=== PATIENT | male | born 1930 | race Caucasian/White ===

== ENCOUNTER 2016-12-28 14:15 | Inpatient (IN) | payer MEDICARE, BC ==
[~2016-12-28] VITALS: Ht 167.6 cm; Wt 68.8 kg
[2016-12-28] VITALS (8 sets, daily range): BP systolic 125–180; BP diastolic 65–95; PULSE 65–82; TEMP 97.1–98
[2016-12-28 19:18] LABS: BASO % 0.2 % (0.0-2.0); EOS % 0.2 % (0-4.0); GRAN # 9.2 (1.4-6.5); GRAN % 76.5 % (42.2-75.2); HEMATOCRIT 47.5 % (42.0-52.0); HEMOGLOBIN 15.3 g/dl (13.5-18.0); LYMPH % 16.8 % (20.0-51.0); MEAN CELL VOLUME 92 fl (80.0-100.0); MEAN CORPUSCULAR HEMOGLOBIN 30 pg (27.0-31.0); MEAN CORPUSCULAR HGB CONC 32 g/dl (33.0-37.0); MEAN PLATELET VOLUME 11.1 fl (7.4-10.4); MONO # 0.7 (0.1-0.6); MONO % 5.4 % (1.7-9.3); PLATELET COUNT 181 K/mm3 (130-400); RED BLOOD COUNT 5.19 M/mm3 (4.20-5.60); WHITE BLOOD COUNT 12.1 K/mm3 (4.8-10.8)
[2016-12-28 19:33] LABS: ADJUSTED CALCIUM 8.8 mg/dL (8.4-10.2); ALBUMIN 3.5 gm/dL (3.5-5.0); BILIRUBIN,TOTAL 1.2 mg/dL (0.0-1.0); CALCIUM 8.4 mg/dL (8.4-10.2); CREATININE, serum 0.82 mg/dL (0.66-1.25); MAGNESIUM 2.2 mg/dL (1.6-2.3); POTASSIUM 3.2 mmol/L (3.4-5.0); TOTAL PROTEIN 6.6 gm/dL (6.4-8.2)
[2016-12-28 20:06] LABS: PH 6 (5-8); SQUAMOUS EPITHELIAL None Seen /hpf; URINE APPEARANCE Clear; URINE BACTERIA None Seen /hpf; URINE BILIRUBIN Negative (NEGATIVE); URINE BLOOD 1+ (NEGATIVE); URINE COLOR Yellow; URINE GLUCOSE Negative (NEGATIVE); URINE KETONE 1+ (NEGATIVE); URINE LEUKOCYTE ESTERASE Negative (NEGATIVE); URINE PROTEIN(semi-quant) Negative (NEGATIVE); URINE RBC 0-2 /hpf; URINE UROBILINOGEN Negative (NEGATIVE)
[2016-12-28 20:19] LABS: COLLECTION METHOD CLEAN CATCH
[2016-12-29] VITALS (8 sets, daily range): BP systolic 89–179; BP diastolic 51–100; PULSE 58–95; TEMP 97.5–97.8
[2016-12-29 07:16] LABS: BASO % 0.3 % (0.0-2.0); EOS % 0.1 % (0-4.0); GRAN # 7.8 (1.4-6.5); GRAN % 77.6 % (42.2-75.2); HEMATOCRIT 48.9 % (42.0-52.0); HEMOGLOBIN 15.8 g/dl (13.5-18.0); LYMPH # 1.6 (1.2-3.4); LYMPH % 15.5 % (20.0-51.0); MEAN CELL VOLUME 92 fl (80.0-100.0); MEAN CORPUSCULAR HEMOGLOBIN 30 pg (27.0-31.0); MEAN CORPUSCULAR HGB CONC 32 g/dl (33.0-37.0); MEAN PLATELET VOLUME 11.8 fl (7.4-10.4); MONO # 0.6 (0.1-0.6); PLATELET COUNT 161 K/mm3 (130-400); RED BLOOD COUNT 5.34 M/mm3 (4.20-5.60); WHITE BLOOD COUNT 10.1 K/mm3 (4.8-10.8)
[2016-12-29 08:19] LABS: CALCIUM 8.3 mg/dL (8.4-10.2); CREATININE, serum 0.77 mg/dL (0.66-1.25); POTASSIUM 3.8 mmol/L (3.4-5.0)
[2016-12-30 04:22] VITALS: BP 142/82; PULSE 79; TEMP 97.4
[2016-12-30 07:02] VITALS: BP 155/75; PULSE 72; TEMP 97
[2016-12-30 11:17] VITALS: BP 144/74; PULSE 52; TEMP 97.8
[2016-12-30 15:29] VITALS: BP 102/61; PULSE 86; TEMP 98.3
[2016-12-30 19:54] VITALS: BP 155/86; PULSE 85; TEMP 97.1
[2016-12-30 23:07] VITALS: BP 155/89; PULSE 69; TEMP 97.5
[2016-12-31 02:55] VITALS: BP 167/85; PULSE 74
[2016-12-31 06:58] LABS: BASO % 0.5 % (0.0-2.0); EOS # 0.1 (0.0-0.7); EOS % 0.9 % (0-4.0); GRAN # 5.1 (1.4-6.5); GRAN % 66.3 % (42.2-75.2); HEMATOCRIT 40.1 % (42.0-52.0); LYMPH # 1.9 (1.2-3.4); LYMPH % 23.8 % (20.0-51.0); MEAN CELL VOLUME 91 fl (80.0-100.0); MEAN CORPUSCULAR HEMOGLOBIN 29 pg (27.0-31.0); MEAN CORPUSCULAR HGB CONC 32 g/dl (33.0-37.0); MEAN PLATELET VOLUME 11.2 fl (7.4-10.4); MONO # 0.6 (0.1-0.6); PLATELET COUNT 155 K/mm3 (130-400); RED BLOOD COUNT 4.43 M/mm3 (4.20-5.60); WHITE BLOOD COUNT 7.8 K/mm3 (4.8-10.8)
[2016-12-31 07:09] LABS: HEMOGLOBIN 12.9 g/dl (13.5-18.0)
[2016-12-31 07:13] LABS: CALCIUM 8.2 mg/dL (8.4-10.2); CREATININE, serum 0.67 mg/dL (0.66-1.25); MAGNESIUM 1.7 mg/dL (1.6-2.3); POTASSIUM 4.2 mmol/L (3.4-5.0)
[2016-12-31 08:27] VITALS: BP 153/83; PULSE 54; TEMP 97.5
[2016-12-31 11:56] VITALS: BP 115/79; PULSE 82; TEMP 97.3
[2016-12-31 14:07] LABS: HEMATOCRIT 42.4 % (42.0-52.0)
[2016-12-31 15:57] VITALS: PULSE 62; TEMP 97.5
[2016-12-31 16:23] VITALS: BP 117/70
[2016-12-31 19:52] VITALS: BP 98/54; PULSE 50; TEMP 99.1
[2017-01-01] VITALS (895 sets, daily range): BP systolic 109–163; BP diastolic 74–104; PULSE 53–131; TEMP 96.9–98.2; O2SAT 58–100
[2017-01-01 03:38] LABS: BASO % 0.4 % (0.0-2.0); EOS # 0.1 (0.0-0.7); EOS % 1.4 % (0-4.0); GRAN % 56.2 % (42.2-75.2); HEMATOCRIT 38.9 % (42.0-52.0); HEMOGLOBIN 12.6 g/dl (13.5-18.0); LYMPH # 2.3 (1.2-3.4); LYMPH % 32.9 % (20.0-51.0); MEAN CELL VOLUME 91 fl (80.0-100.0); MEAN CORPUSCULAR HEMOGLOBIN 29 pg (27.0-31.0); MEAN CORPUSCULAR HGB CONC 32 g/dl (33.0-37.0); MEAN PLATELET VOLUME 11.1 fl (7.4-10.4); MONO # 0.6 (0.1-0.6); MONO % 8.7 % (1.7-9.3); PLATELET COUNT 138 K/mm3 (130-400); RED BLOOD COUNT 4.28 M/mm3 (4.20-5.60); WHITE BLOOD COUNT 7.1 K/mm3 (4.8-10.8)
[2017-01-01 03:48] LABS: ANION GAP 3 mmol/L (7-16); BLOOD UREA NITROGEN 18 mg/dL (9-20); CALCIUM 7.9 mg/dL (8.4-10.2); CARBON DIOXIDE 23 mmol/L (22-30); CHLORIDE 109 mmol/L (98-107); CREATININE, serum 0.76 mg/dL (0.66-1.25); GLUCOSE 89 mg/dL (74-106); MAGNESIUM 1.6 mg/dL (1.6-2.3); PHOSPHOROUS 3.3 mg/dL (2.5-4.5); POTASSIUM 3.5 mmol/L (3.4-5.0); SODIUM 135 mmol/L (137-145)
[2017-01-01 04:01] LABS: TROPONIN-I < 0.012 ng/mL (0.000-0.034)
[2017-01-01 07:35] LABS: BASO % 0.5 % (0.0-2.0); EOS # 0.1 (0.0-0.7); GRAN # 4.7 (1.4-6.5); GRAN % 57.6 % (42.2-75.2); HEMATOCRIT 40.2 % (42.0-52.0); HEMOGLOBIN 13.1 g/dl (13.5-18.0); LYMPH # 2.6 (1.2-3.4); LYMPH % 31.7 % (20.0-51.0); MEAN CELL VOLUME 91 fl (80.0-100.0); MEAN CORPUSCULAR HEMOGLOBIN 30 pg (27.0-31.0); MEAN CORPUSCULAR HGB CONC 33 g/dl (33.0-37.0); MEAN PLATELET VOLUME 11.4 fl (7.4-10.4); MONO # 0.7 (0.1-0.6); MONO % 8.8 % (1.7-9.3); PLATELET COUNT 147 K/mm3 (130-400); RED BLOOD COUNT 4.41 M/mm3 (4.20-5.60); WHITE BLOOD COUNT 8.2 K/mm3 (4.8-10.8)
[2017-01-01 07:41] LABS: CALCIUM 8.1 mg/dL (8.4-10.2); CREATININE, serum 0.75 mg/dL (0.66-1.25); MAGNESIUM 1.9 mg/dL (1.6-2.3); POTASSIUM 3.9 mmol/L (3.4-5.0)
[2017-01-02] VITALS (731 sets, daily range): BP systolic 107–171; BP diastolic 57–109; PULSE 64–102; TEMP 97–98.8; O2SAT 69–100
[2017-01-02 05:51] LABS: ADD PATHOLOGY DIFF REVIEW NO
[2017-01-02 05:57] LABS: HEMATOCRIT 43.9 % (42.0-52.0); HEMOGLOBIN 14.2 g/dl (13.5-18.0); MEAN CELL VOLUME 91 fl (80.0-100.0); MEAN CORPUSCULAR HEMOGLOBIN 30 pg (27.0-31.0); MEAN CORPUSCULAR HGB CONC 32 g/dl (33.0-37.0); MEAN PLATELET VOLUME 11.1 fl (7.4-10.4); PLATELET COUNT 154 K/mm3 (130-400); RED BLOOD COUNT 4.82 M/mm3 (4.20-5.60); WHITE BLOOD COUNT 7.4 K/mm3 (4.8-10.8)
[2017-01-02 06:08] LABS: CALCIUM 8.4 mg/dL (8.4-10.2); CREATININE, serum 0.73 mg/dL (0.66-1.25); MAGNESIUM 1.9 mg/dL (1.6-2.3)
[2017-01-02 06:32] LABS: BAND 2 % (0-10); EOSINOPHIL 3 % (0-4); LYMPHOCYTE 36 % (20.0-51.0); NEUTROPHILS 51 % (42.0-75.2); PLATELET ESTIMATE NORMAL (NORMAL); TOTAL CELLS COUNTED 100
[2017-01-02 06:36] LABS: TSH w REFLEX 2.75 uIU/mL (0.465-4.680)
[2017-01-03 04:23] VITALS: BP 133/75; PULSE 68; TEMP 98.1
[2017-01-03] MEDS ORDERED: PACERONE400 MG PO (07:37)
[2017-01-03] MEDS ORDERED: NORVASC2.5 MG PO (07:38)
[2017-01-03 08:17] VITALS: BP 151/83; PULSE 70; TEMP 97
[2017-01-03 10:27] VITALS: BP 151/83; PULSE 70; TEMP 97
== END 2017-01-03 12:45 | DRG 391 ==
LOC: MEDICAL 14:15 → SDCO 16:00 → EDSTATUS 16:00 → MEDICAL 16:54 → ICU 01-01 04:40 → MEDICAL 01-02 15:15
PROVIDERS: Internal Medicine; Internal Medicine Gastroenterology; Nurse Practitioner Family; Physician Assistant
PROC: 0DJD8ZZ Inspection of Lower Intestinal Tract, Via Natural or Artificial Opening Endoscopic (ICD-10-PCS; principal; 2016-12-28 16:00)
DX: K59.8 Other specified functional intestinal disorders (principal); E43 Unspecified severe protein-calorie malnutrition; N39.0 Urinary tract infection, site not specified; I48.92 Unspecified atrial flutter; I10 Essential (primary) hypertension; E87.6 Hypokalemia; I48.0 Paroxysmal atrial fibrillation; B96.20 Unspecified Escherichia coli [E. coli] as the cause of diseases classified elsewhere
CPT/HCPCS: OP; 99223-AI; 99232-AI; 99233-AI; 99239; C9113; J0282; J0360; J0696; J1650; J2704; J3475; J3480; J7030; J7060

== ENCOUNTER 2017-01-07 19:10 | Inpatient (IN) | payer MEDICARE, BC ==
[~2017-01-07] VITALS: Ht 167.6 cm; Wt 63.6 kg
[~2017-01-07 19:10] MED LIST: NORVASC2.5 MG PO; PACERONE400 MG PO
[2017-01-07 21:06] VITALS: BP 136/83; PULSE 94; TEMP 98.5
[2017-01-07 22:26] LABS: BASO % 0.3 % (0.0-2.0); EOS # 0.1 (0.0-0.7); EOS % 0.5 % (0-4.0); GRAN # 6.5 (1.4-6.5); GRAN % 66.8 % (42.2-75.2); HEMATOCRIT 42.9 % (42.0-52.0); HEMOGLOBIN 13.7 g/dl (13.5-18.0); LYMPH # 2.4 (1.2-3.4); LYMPH % 24.8 % (20.0-51.0); MEAN CELL VOLUME 92 fl (80.0-100.0); MEAN CORPUSCULAR HEMOGLOBIN 29 pg (27.0-31.0); MEAN CORPUSCULAR HGB CONC 32 g/dl (33.0-37.0); MONO # 0.7 (0.1-0.6); MONO % 7.1 % (1.7-9.3); PLATELET COUNT 227 K/mm3 (130-400); RED BLOOD COUNT 4.66 M/mm3 (4.20-5.60); WHITE BLOOD COUNT 9.8 K/mm3 (4.8-10.8)
[2017-01-07 22:35] LABS: ADJUSTED CALCIUM 9.3 mg/dL (8.4-10.2); ALBUMIN 3.8 gm/dL (3.5-5.0); BILIRUBIN,TOTAL 0.7 mg/dL (0.0-1.0); CALCIUM 9.1 mg/dL (8.4-10.2); CREATININE, serum 1.26 mg/dL (0.66-1.25); POTASSIUM 3.4 mmol/L (3.4-5.0); TOTAL PROTEIN 7.3 gm/dL (6.4-8.2)
[2017-01-08 00:30] VITALS: BP 122/72; PULSE 57; TEMP 98.5
[2017-01-08 05:09] VITALS: BP 134/61; PULSE 60; TEMP 98.3
[2017-01-08 07:52] VITALS: BP 125/75; PULSE 64; TEMP 97.8
[2017-01-08 11:05] VITALS: BP 99/61; PULSE 67; TEMP 97.8
[2017-01-08 12:53] LABS: PH 7 (5-8); SQUAMOUS EPITHELIAL None Seen /hpf; URINE APPEARANCE Clear; URINE BACTERIA None Seen /hpf; URINE BILIRUBIN Negative (NEGATIVE); URINE BLOOD Negative (NEGATIVE); URINE COLOR Straw; URINE GLUCOSE Negative (NEGATIVE); URINE KETONE Negative (NEGATIVE); URINE LEUKOCYTE ESTERASE Negative (NEGATIVE); URINE PROTEIN(semi-quant) Negative (NEGATIVE); URINE RBC 0-2 /hpf; URINE UROBILINOGEN Negative (NEGATIVE); URINE WBC 0-2 /hpf
[2017-01-08 13:02] LABS: COLLECTION METHOD CLEAN CATCH
[2017-01-08 15:19] VITALS: BP 109/58; PULSE 68; TEMP 97.6
[2017-01-08 19:20] VITALS: BP 106/60; PULSE 68; TEMP 98.5
[2017-01-09] VITALS (7 sets, daily range): BP systolic 115–158; BP diastolic 60–87; PULSE 59–71; TEMP 97.5–98.6
[2017-01-10 03:04] VITALS: BP 174/74; PULSE 69; TEMP 97.8
[2017-01-10 06:10] LABS: CALCIUM 8.1 mg/dL (8.4-10.2); CREATININE, serum 0.8 mg/dL (0.66-1.25); MAGNESIUM 1.7 mg/dL (1.6-2.3)
[2017-01-10 06:14] LABS: POTASSIUM 2.8 mmol/L (3.4-5.0)
[2017-01-10 07:46] VITALS: BP 131/80; PULSE 61; TEMP 98.1
[2017-01-10 08:29] LABS: BASO % 0.5 % (0.0-2.0); EOS # 0.1 (0.0-0.7); EOS % 0.7 % (0-4.0); GRAN # 5.3 (1.4-6.5); GRAN % 66.3 % (42.2-75.2); HEMATOCRIT 37.9 % (42.0-52.0); HEMOGLOBIN 12.1 g/dl (13.5-18.0); LYMPH % 24.7 % (20.0-51.0); MEAN CELL VOLUME 92 fl (80.0-100.0); MEAN CORPUSCULAR HEMOGLOBIN 29 pg (27.0-31.0); MEAN CORPUSCULAR HGB CONC 32 g/dl (33.0-37.0); MEAN PLATELET VOLUME 10.3 fl (7.4-10.4); MONO # 0.6 (0.1-0.6); MONO % 7.6 % (1.7-9.3); PLATELET COUNT 218 K/mm3 (130-400); RED BLOOD COUNT 4.11 M/mm3 (4.20-5.60)
[2017-01-10 11:27] VITALS: BP 130/66; PULSE 66; TEMP 98.1
[2017-01-10 15:25] VITALS: BP 121/63; PULSE 72; TEMP 97.9
[2017-01-10 19:49] VITALS: BP 144/80; PULSE 66; TEMP 97.9
[2017-01-11] VITALS (7 sets, daily range): BP systolic 129–152; BP diastolic 77–96; PULSE 63–83; TEMP 97.7–99.1
[2017-01-11 07:04] LABS: BASO % 0.4 % (0.0-2.0); EOS # 0.1 (0.0-0.7); EOS % 1.2 % (0-4.0); GRAN % 58.4 % (42.2-75.2); LYMPH # 2.2 (1.2-3.4); LYMPH % 31.7 % (20.0-51.0); MEAN CELL VOLUME 93 fl (80.0-100.0); MEAN CORPUSCULAR HGB CONC 32 g/dl (33.0-37.0); MEAN PLATELET VOLUME 10.3 fl (7.4-10.4); MONO # 0.5 (0.1-0.6); MONO % 7.9 % (1.7-9.3); PLATELET COUNT 217 K/mm3 (130-400); RED BLOOD COUNT 3.87 M/mm3 (4.20-5.60); WHITE BLOOD COUNT 6.8 K/mm3 (4.8-10.8)
[2017-01-11 07:14] LABS: HEMATOCRIT 35.9 % (42.0-52.0); HEMOGLOBIN 11.5 g/dl (13.5-18.0); MEAN CORPUSCULAR HEMOGLOBIN 30 pg (27.0-31.0)
[2017-01-11 07:19] LABS: CREATININE, serum 0.75 mg/dL (0.66-1.25); MAGNESIUM 2.2 mg/dL (1.6-2.3); PHOSPHOROUS 2.8 mg/dL (2.5-4.5); POTASSIUM 3.7 mmol/L (3.4-5.0)
[2017-01-12] VITALS (7 sets, daily range): BP systolic 108–141; BP diastolic 68–85; PULSE 67–88; TEMP 97–98.8
[2017-01-12 07:00] LABS: CALCIUM 8.2 mg/dL (8.4-10.2); CREATININE, serum 0.85 mg/dL (0.66-1.25); MAGNESIUM 2.1 mg/dL (1.6-2.3); POTASSIUM 3.5 mmol/L (3.4-5.0)
[2017-01-13 04:16] VITALS: BP 154/93; PULSE 69; TEMP 97.8
[2017-01-13 06:50] LABS: BASO % 0.5 % (0.0-2.0); EOS # 0.1 (0.0-0.7); GRAN % 60.8 % (42.2-75.2); HEMATOCRIT 38.8 % (42.0-52.0); HEMOGLOBIN 12.4 g/dl (13.5-18.0); LYMPH # 2.4 (1.2-3.4); LYMPH % 29.3 % (20.0-51.0); MEAN CELL VOLUME 93 fl (80.0-100.0); MEAN CORPUSCULAR HEMOGLOBIN 30 pg (27.0-31.0); MEAN CORPUSCULAR HGB CONC 32 g/dl (33.0-37.0); MEAN PLATELET VOLUME 10.1 fl (7.4-10.4); MONO # 0.6 (0.1-0.6); MONO % 7.9 % (1.7-9.3); PLATELET COUNT 246 K/mm3 (130-400); RED BLOOD COUNT 4.17 M/mm3 (4.20-5.60); WHITE BLOOD COUNT 8.1 K/mm3 (4.8-10.8)
[2017-01-13 07:06] LABS: CALCIUM 8.7 mg/dL (8.4-10.2); CREATININE, serum 0.85 mg/dL (0.66-1.25); POTASSIUM 3.6 mmol/L (3.4-5.0)
[2017-01-13 08:03] VITALS: BP 141/95; PULSE 53; TEMP 97.9
[2017-01-13 11:30] VITALS: BP 120/96; PULSE 83; TEMP 98.2
[2017-01-13 16:24] VITALS: BP 128/88; PULSE 62; TEMP 98
[2017-01-13 19:59] VITALS: BP 120/63; PULSE 77; TEMP 97.7
[2017-01-14] VITALS (11 sets, daily range): BP systolic 93–143; BP diastolic 58–85; PULSE 61–79; TEMP 97–98.5
[2017-01-14 06:39] LABS: BASO % 0.4 % (0.0-2.0); EOS # 0.1 (0.0-0.7); EOS % 0.9 % (0-4.0); GRAN # 4.1 (1.4-6.5); GRAN % 60.1 % (42.2-75.2); HEMATOCRIT 40.6 % (42.0-52.0); LYMPH # 2.1 (1.2-3.4); LYMPH % 30.2 % (20.0-51.0); MEAN CELL VOLUME 92 fl (80.0-100.0); MEAN CORPUSCULAR HEMOGLOBIN 30 pg (27.0-31.0); MEAN CORPUSCULAR HGB CONC 32 g/dl (33.0-37.0); MEAN PLATELET VOLUME 10.1 fl (7.4-10.4); MONO # 0.6 (0.1-0.6); MONO % 8.1 % (1.7-9.3); PLATELET COUNT 244 K/mm3 (130-400); WHITE BLOOD COUNT 6.8 K/mm3 (4.8-10.8)
[2017-01-14 06:52] LABS: CALCIUM 8.7 mg/dL (8.4-10.2); CREATININE, serum 0.91 mg/dL (0.66-1.25); MAGNESIUM 2.1 mg/dL (1.6-2.3)
[2017-01-15] VITALS: BP 126/64; PULSE 75; TEMP 97.5
[2017-01-15 04:00] VITALS: BP 126/64; PULSE 73; TEMP 98.9
[2017-01-15 07:37] LABS: BASO % 0.2 % (0.0-2.0); EOS % 0.2 % (0-4.0); GRAN # 8.3 (1.4-6.5); GRAN % 83.5 % (42.2-75.2); LYMPH # 1.1 (1.2-3.4); LYMPH % 11.3 % (20.0-51.0); MEAN CELL VOLUME 93 fl (80.0-100.0); MEAN CORPUSCULAR HGB CONC 32 g/dl (33.0-37.0); MEAN PLATELET VOLUME 10.4 fl (7.4-10.4); MONO # 0.4 (0.1-0.6); MONO % 4.4 % (1.7-9.3); PLATELET COUNT 200 K/mm3 (130-400); RED BLOOD COUNT 3.85 M/mm3 (4.20-5.60)
[2017-01-15 07:54] LABS: HEMATOCRIT 35.9 % (42.0-52.0); HEMOGLOBIN 11.4 g/dl (13.5-18.0); MEAN CORPUSCULAR HEMOGLOBIN 30 pg (27.0-31.0)
[2017-01-15 07:57] LABS: CALCIUM 8.2 mg/dL (8.4-10.2); CREATININE, serum 0.85 mg/dL (0.66-1.25); MAGNESIUM 1.8 mg/dL (1.6-2.3)
[2017-01-15 08:00] VITALS: BP 123/63; PULSE 71; TEMP 98.1
[2017-01-15 12:00] VITALS: BP 138/66; PULSE 76; TEMP 98.8
[2017-01-15 16:22] VITALS: BP 138/66; PULSE 76; TEMP 98.8
[2017-01-15 20:00] VITALS: BP 122/69; PULSE 84; TEMP 98.5
[2017-01-16] VITALS (7 sets, daily range): BP systolic 115–168; BP diastolic 69–93; PULSE 72–85; TEMP 97–98.9
[2017-01-16 07:31] LABS: BASO % 0.1 % (0.0-2.0); EOS # 0.1 (0.0-0.7); EOS % 1.6 % (0-4.0); GRAN # 6.7 (1.4-6.5); GRAN % 78.7 % (42.2-75.2); LYMPH # 1.2 (1.2-3.4); LYMPH % 14.5 % (20.0-51.0); MEAN CELL VOLUME 94 fl (80.0-100.0); MEAN CORPUSCULAR HGB CONC 32 g/dl (33.0-37.0); MEAN PLATELET VOLUME 10.8 fl (7.4-10.4); MONO # 0.4 (0.1-0.6); MONO % 4.9 % (1.7-9.3); PLATELET COUNT 189 K/mm3 (130-400); RED BLOOD COUNT 3.76 M/mm3 (4.20-5.60); WHITE BLOOD COUNT 8.5 K/mm3 (4.8-10.8)
[2017-01-16 08:07] LABS: HEMATOCRIT 35.2 % (42.0-52.0); HEMOGLOBIN 11.1 g/dl (13.5-18.0); MEAN CORPUSCULAR HEMOGLOBIN 30 pg (27.0-31.0)
[2017-01-16 08:15] LABS: CALCIUM 8.2 mg/dL (8.4-10.2); CREATININE, serum 0.73 mg/dL (0.66-1.25); POTASSIUM 4.4 mmol/L (3.4-5.0)
[2017-01-17 00:40] VITALS: BP 155/81; PULSE 64; TEMP 98.3
[2017-01-17 04:00] VITALS: BP 155/81; PULSE 64; TEMP 98.3
[2017-01-17] MEDS ORDERED: XANAX .25M0.25 MG/TA PO (05:29)
[2017-01-17] MEDS ORDERED: LEXAPRO 5MG5 MG PO (05:30)
[2017-01-17] MEDS ORDERED: DESYREL 50MG50 MG PO (05:30)
[2017-01-17] MEDS ORDERED: XARELTO20 MG PO (05:31)
[2017-01-17] MEDS ORDERED: TYLENOL 325MG325 MG PO (08:21)
[2017-01-17] MEDS ORDERED: NORVASC2.5 MG PO (08:21)
[2017-01-17] MEDS ORDERED: NORCO 325 MG-51 TAB PO (08:22)
[2017-01-17 11:34] VITALS: BP 155/81; PULSE 64; TEMP 98.3
[2017-01-17 13:35] VITALS: BP 155/81; PULSE 64; TEMP 98.3
== END 2017-01-17 13:50 | DRG 329 ==
LOC: MEDICAL 19:10 → SURG 20:39 → MEDICAL 22:00 → SURG 01-14 08:40
PROVIDERS: Family Medicine; Internal Medicine; Nurse Practitioner Family; Physician Assistant; Surgery
PROC: 0D9N8ZZ Drainage of Sigmoid Colon, Via Natural or Artificial Opening Endoscopic (ICD-10-PCS; 2017-01-07)
PROC: 0D9P8ZZ Drainage of Rectum, Via Natural or Artificial Opening Endoscopic (ICD-10-PCS; 2017-01-07)
PROC: 0DTN0ZZ Resection of Sigmoid Colon, Open Approach (ICD-10-PCS; principal; 2017-01-14 09:30)
DX: K56.2 Volvulus (principal); E43 Unspecified severe protein-calorie malnutrition; N17.9 Acute kidney failure, unspecified; Z66 Do not resuscitate; I10 Essential (primary) hypertension; I48.0 Paroxysmal atrial fibrillation; E87.6 Hypokalemia
CPT/HCPCS: 99222-AI; 99231-AI; 99232-AI; 99239; A4314; A9284; J0694; J1364; J1650; J2250; J2370; J2405; J2704; J2710; J3010; J3475; J3480; J7030; J7050; J7120

== ENCOUNTER 2017-06-16 04:07 | Emergency (ER) | payer MEDICARE, BC ==
[~2017-06-16] VITALS: Ht 167.6 cm; Wt 72.7 kg
[~2017-06-16 04:07] MED LIST changes: +DESYREL 50MG50 MG PO; +LEXAPRO 5MG5 MG PO; +NORCO 325 MG-51 TAB PO; +TYLENOL 325MG325 MG PO; +XANAX .25M0.25 MG/TA PO; +XARELTO20 MG PO
[2017-06-16 04:09] VITALS: TEMP 97.6
[2017-06-16 04:50] LABS: BASO % 0.5 % (0.0-2.0); EOS # 0.2 (0.0-0.7); EOS % 2.2 % (0-4.0); GRAN # 4.1 (1.4-6.5); GRAN % 50.5 % (42.2-75.2); HEMATOCRIT 41.1 % (42.0-52.0); HEMOGLOBIN 13.3 g/dl (13.5-18.0); LYMPH # 3.2 (1.2-3.4); LYMPH % 39.5 % (20.0-51.0); MEAN CELL VOLUME 90 fl (80.0-100.0); MEAN CORPUSCULAR HEMOGLOBIN 29 pg (27.0-31.0); MEAN CORPUSCULAR HGB CONC 32 g/dl (33.0-37.0); MEAN PLATELET VOLUME 10.4 fl (7.4-10.4); MONO # 0.5 (0.1-0.6); MONO % 6.4 % (1.7-9.3); PLATELET COUNT 174 K/mm3 (130-400); RED BLOOD COUNT 4.57 M/mm3 (4.20-5.60); REDCELL DISTRIBUTION WIDTH-CV 13.4 % (11.5-14.5)
[2017-06-16 04:55] LABS: PROTHROMBIN TIME 11.4 SECONDS (9.7-12.8)
[2017-06-16 05:00] LABS: ALANINE AMINOTRANSFERASE 18 U/L (21-72); ALBUMIN 3.7 gm/dL (3.5-5.0); ALKALINE PHOSPHATASE 120 U/L (50-136); ANION GAP 13 mmol/L (7-16); AST,SGOT 24 U/L (15-37); BILIRUBIN,TOTAL 0.3 mg/dL (0.0-1.0); BLOOD UREA NITROGEN 34 mg/dL (9-20); CARBON DIOXIDE 28 mmol/L (22-30); CHLORIDE 105 mmol/L (98-107); CREATININE, serum 0.99 mg/dL (0.66-1.25); GLUCOSE 96 mg/dL (74-106); POTASSIUM 4.4 mmol/L (3.4-5.0); SODIUM 145 mmol/L (137-145)
[2017-06-16 05:12] LABS: TROPONIN-I < 0.012 ng/mL (0.000-0.034)
[2017-06-16 06:53] VITALS: BP 125/86; PULSE 86
[2017-06-17] MEDS ORDERED: ASPIRIN 81M81 MG/TA2 PO (12:39)
== END 2017-06-16 06:53 | disposition home or self-care (01) ==
LOC: COL.ER 04:07
PROVIDERS: Emergency Medicine
DX: S00.83XA Contusion of other part of head, initial encounter (principal); S51.812A Laceration without foreign body of left forearm, initial encounter; S61.412A Laceration without foreign body of left hand, initial encounter; S51.012A Laceration without foreign body of left elbow, initial encounter; E86.0 Dehydration; R40.2412 Glasgow coma scale score 13-15, at arrival to emergency department; I10 Essential (primary) hypertension; I48.91 Unspecified atrial fibrillation; E78.5 Hyperlipidemia, unspecified; W18.39XA Other fall on same level, initial encounter; Y92.009 Unspecified place in unspecified non-institutional (private) residence as the place of occurrence of the external cause
CPT/HCPCS: J7040

== ENCOUNTER 2017-06-17 12:13 | Emergency (ER) | payer MEDICARE, BC ==
[~2017-06-17] VITALS: Ht 167.6 cm; Wt 72.7 kg
[2017-06-17 12:16] VITALS: TEMP 97.4
[2017-06-17] MEDS ORDERED: ASPIRIN 81M81 MG/TA2 PO (12:39)
[2017-06-17 13:30] VITALS: BP 160/88; PULSE 90
== END 2017-06-17 13:32 | disposition home or self-care (01) ==
LOC: COL.ER 12:13
DX: S61.412A Laceration without foreign body of left hand, initial encounter (principal); W19.XXXA Unspecified fall, initial encounter; Z79.82 Long term (current) use of aspirin

== ENCOUNTER 2017-08-04 00:25 | Emergency (ER) | payer MEDICARE, BC ==
[~2017-08-04] VITALS: Ht 167.6 cm; Wt 72.7 kg
[~2017-08-04 00:25] MED LIST changes: +ASPIRIN 81M81 MG/TA2 PO
[2017-08-04 00:29] VITALS: TEMP 98.1
[2017-08-04] MEDS ORDERED: FLOMAX 0.40.4 MG/CAP PO (00:42)
[2017-08-04 00:47] LABS: BASO # 0.1 (0.0-0.2); BASO % 0.4 % (0.0-2.0); EOS # 0.1 (0.0-0.7); EOS % 0.7 % (0-4.0); GRAN % 79.2 % (42.2-75.2); HEMATOCRIT 44.1 % (42.0-52.0); HEMOGLOBIN 14.3 g/dl (13.5-18.0); LYMPH # 2.2 (1.2-3.4); LYMPH % 14.3 % (20.0-51.0); MEAN CELL VOLUME 89 fl (80.0-100.0); MEAN CORPUSCULAR HEMOGLOBIN 29 pg (27.0-31.0); MEAN CORPUSCULAR HGB CONC 32 g/dl (33.0-37.0); MEAN PLATELET VOLUME 10.8 fl (7.4-10.4); MONO # 0.8 (0.1-0.6); MONO % 5.1 % (1.7-9.3); PLATELET COUNT 221 K/mm3 (130-400); RED BLOOD COUNT 4.94 M/mm3 (4.20-5.60); REDCELL DISTRIBUTION WIDTH-CV 13.4 % (11.5-14.5)
[2017-08-04 01:01] LABS: ALANINE AMINOTRANSFERASE 19 U/L (21-72); ALBUMIN 4.4 gm/dL (3.5-5.0); ALKALINE PHOSPHATASE 135 U/L (50-136); ANION GAP 13 mmol/L (7-16); AST,SGOT 25 U/L (15-37); BILIRUBIN,TOTAL 0.4 mg/dL (0.0-1.0); BLOOD UREA NITROGEN 31 mg/dL (9-20); C-REACTIVE PROTEIN 0.8 mg/dL (0.0-0.9); CALCIUM 9.7 mg/dL (8.4-10.2); CARBON DIOXIDE 27 mmol/L (22-30); CHLORIDE 101 mmol/L (98-107); CREATININE, serum 1.18 mg/dL (0.66-1.25); GLUCOSE 116 mg/dL (74-106); LIPASE 82 U/L (23-300); POTASSIUM 4.5 mmol/L (3.4-5.0); SODIUM 141 mmol/L (137-145); TOTAL PROTEIN 8.9 gm/dL (6.4-8.2)
[2017-08-04 01:13] LABS: TROPONIN-I < 0.012 ng/mL (0.000-0.034)
[2017-08-04 02:30] VITALS: BP 145/104
[2017-08-04 02:55] LABS: COLLECTION METHOD CLEAN CATCH
[2017-08-04 03:00] VITALS: PULSE 105
[2017-08-04 03:01] LABS: MUCOUS Present /lpf; PH 5 (5-8); SQUAMOUS EPITHELIAL None Seen /hpf; URINE APPEARANCE Clear; URINE BACTERIA None Seen /hpf; URINE BILIRUBIN Negative (NEGATIVE); URINE BLOOD Negative (NEGATIVE); URINE COLOR Straw; URINE GLUCOSE Negative (NEGATIVE); URINE KETONE Negative (NEGATIVE); URINE LEUKOCYTE ESTERASE Negative (NEGATIVE); URINE NITRATE Negative (NEGATIVE); URINE PROTEIN(semi-quant) Negative (NEGATIVE); URINE RBC 0-2 /hpf; URINE UROBILINOGEN Negative (NEGATIVE)
== END 2017-08-04 03:10 | disposition short-term general hospital (02) ==
LOC: COL.ER 00:25
PROVIDERS: Emergency Medicine
DX: K56.609 Unspecified intestinal obstruction, unspecified as to partial versus complete obstruction (principal); I10 Essential (primary) hypertension; E78.5 Hyperlipidemia, unspecified; N40.0 Benign prostatic hyperplasia without lower urinary tract symptoms; I48.91 Unspecified atrial fibrillation; Z79.82 Long term (current) use of aspirin
CPT/HCPCS: J2405; J3010; J7030; Q9967

== ENCOUNTER 2017-08-12 11:15 | Outpatient (RCR) | payer MEDICARE, BC ==
[~2017-08-12 11:15] MED LIST changes: +FLOMAX 0.40.4 MG/CAP PO
== END 2017-09-26 09:32 | disposition home or self-care (01) ==
LOC: MKS.ESL.PT 11:15
DX: S42.202D Unspecified fracture of upper end of left humerus, subsequent encounter for fracture with routine healing (principal); W19.XXXD Unspecified fall, subsequent encounter
CPT/HCPCS: G8987-GP; G8988-GP

== ENCOUNTER → 2017-09-02 | Outpatient (CLI) | payer MEDICARE, BC | LOC: COL.RAD 14:21 | DX: M17.11 Unilateral primary osteoarthritis, right knee (principal); Z96.649 Presence of unspecified artificial hip joint ==

== ENCOUNTER 2017-12-25 03:53 | Observation (INO) | payer MEDICARE, BC ==
[~2017-12-25] VITALS: Ht 167.6 cm; Wt 76.3 kg
[2017-12-25 04:22] LABS: BASO # 0.1 (0.0-0.2); BASO % 0.4 % (0.0-2.0); EOS % 0.1 % (0-4.0); GRAN # 10.5 (1.4-6.5); GRAN % 83.7 % (42.2-75.2); HEMATOCRIT 49.2 % (42.0-52.0); HEMOGLOBIN 16.3 g/dl (13.5-18.0); LYMPH # 1.4 (1.2-3.4); LYMPH % 10.7 % (20.0-51.0); MEAN CELL VOLUME 89 fl (80.0-100.0); MEAN CORPUSCULAR HEMOGLOBIN 30 pg (27.0-31.0); MEAN CORPUSCULAR HGB CONC 33 g/dl (33.0-37.0); MONO # 0.6 (0.1-0.6); MONO % 4.7 % (1.7-9.3); PLATELET COUNT 213 K/mm3 (130-400); RED BLOOD COUNT 5.53 M/mm3 (4.20-5.60); REDCELL DISTRIBUTION WIDTH-CV 13.6 % (11.5-14.5)
[2017-12-25 04:34] LABS: ALBUMIN 4.3 gm/dL (3.5-5.0); BILIRUBIN,TOTAL 0.5 mg/dL (0.0-1.0); C-REACTIVE PROTEIN 0.8 mg/dL (0.0-0.9); CALCIUM 9.5 mg/dL (8.4-10.2); CREATININE, serum 0.79 mg/dL (0.66-1.25); POTASSIUM 4.5 mmol/L (3.4-5.0); TOTAL PROTEIN 7.9 gm/dL (6.4-8.2)
[2017-12-25 05:21] LABS: COLLECTION METHOD CLEAN CATCH
[2017-12-25 05:29] LABS: MUCOUS Present /lpf; PH 7 (5-8); SQUAMOUS EPITHELIAL 0-2 /hpf; URINE APPEARANCE Clear; URINE BACTERIA None Seen /hpf; URINE BILIRUBIN Negative (NEGATIVE); URINE BLOOD Negative (NEGATIVE); URINE COLOR Yellow; URINE GLUCOSE Negative (NEGATIVE); URINE KETONE Negative (NEGATIVE); URINE LEUKOCYTE ESTERASE Negative (NEGATIVE); URINE NITRATE Negative (NEGATIVE); URINE PROTEIN(semi-quant) 2+ (NEGATIVE); URINE RBC 0-2 /hpf; URINE UROBILINOGEN Negative (NEGATIVE)
[2017-12-25 08:09] VITALS: BP 178/107; PULSE 86; TEMP 98.6
[2017-12-25 09:01] VITALS: BP 170/107; PULSE 96
[2017-12-25 11:28] VITALS: BP 160/104; PULSE 85; TEMP 99
[2017-12-25 16:51] VITALS: BP 161/98; PULSE 94; TEMP 98.9
[2017-12-25 18:35] VITALS: BP 144/75; PULSE 91
[2017-12-25 22:03] VITALS: BP 142/82; PULSE 76; TEMP 97.6
[2017-12-26 04:31] VITALS: BP 106/76; PULSE 94; TEMP 97.6
[2017-12-26 07:31] VITALS: BP 149/74; PULSE 68; TEMP 98.3
[2017-12-26 12:21] VITALS: BP 134/77; PULSE 84; TEMP 98.6
[2017-12-26 16:11] VITALS: BP 151/88; PULSE 84; TEMP 97.9
[2017-12-26 20:17] VITALS: BP 146/87; PULSE 87; TEMP 98.2
[2017-12-27 00:19] VITALS: BP 159/91; PULSE 80; TEMP 98.4
[2017-12-27 04:03] VITALS: BP 142/92; PULSE 43; TEMP 98.5
[2017-12-27 07:47] VITALS: BP 150/88; PULSE 91; TEMP 99
[2017-12-27 12:08] VITALS: BP 123/80; PULSE 93; TEMP 99
== END 2017-12-27 15:30 | disposition home or self-care (01) ==
LOC: COL.ER 03:53 → JCC 06:54
PROVIDERS: Family Medicine
DX: K56.609 Unspecified intestinal obstruction, unspecified as to partial versus complete obstruction (principal); Z90.49 Acquired absence of other specified parts of digestive tract
CPT/HCPCS: G0378; J0360; J2405; J7030; J7120; Q9967

== ENCOUNTER → 2018-02-06 | Outpatient (CLI) | payer MEDICARE, BC | LOC: COL.RAD 12:35 | DX: R41.0 Disorientation, unspecified (principal) ==

== ENCOUNTER → 2018-02-21 | Outpatient (CLI) | payer MEDICARE, BC | LOC: COL.RAD 12:40 | DX: G31.9 Degenerative disease of nervous system, unspecified (principal); I67.82 Cerebral ischemia; I63.9 Cerebral infarction, unspecified; I67.2 Cerebral atherosclerosis | CPT/HCPCS: Q9967 ==